=== PATIENT | male | born 1980 | race Caucasian/White ===

== ENCOUNTER 2020-02-12 13:01 | Emergency (ER) | payer OTHER ==
[2020-02-12 13:34] VITALS: BP 132/78
--- NOTE | 2020-02-12 14:15 | ER Document Report ---
ED Medical Screen (RME) - General Chief Complaint: Back Injury Stated Complaint: BACK/LEG PAIN Time Seen by Provider: 02/12/20 14:03 Mode of Arrival: Wheelchair Information source: Patient Notes: 40-year-old male presented to ED very because he has severe excruciating back pain that caused him to fall down and hit the floor. He states he was picking a tire off off of the tire machine when he felt a pop that was caused such severe pain that he hit the ground. He states he has had back pain and sciatica in the past but is never had pain like this. He states he does have a history of [place] tooth removal inguinal hernia and a traumatic brain injury. He states he is also had a colonoscopy and endoscopy. He states he does dip a pouch a day drinks maybe twice a year and does not do any illicit drugs. Patient is alert oriented respirations regular nonlabored speaking in full sentences. He states he is not able to walk due to the pain in the back after this injury. I have greeted and performed a rapid initial assessment of this patient. A comprehensive ED assessment and evaluation of the patient, analysis of test results and completion of medical decision making process will be conducted by an additional ED providers. TRAVEL OUTSIDE OF THE [place] IN LAST 30 DAYS: No - Related Data Allergies/Adverse Reactions: No Known Allergies Allergy (Unverified 08/01/15 19:50) Physical Exam - Vital signs Vitals: Temp Pulse Resp BP Pulse Ox 98.6 F 63 20 132/78 H 99 02/12/20 13:33 02/12/20 13:33 02/12/20 13:33 02/12/20 13:33 02/12/20 13:33 Course - Vital Signs Vital signs: Temp Pulse Resp BP Pulse Ox 98.6 F 63 20 132/78 H 99 02/12/20 13:33 02/12/20 13:33 02/12/20 13:33 02/12/20 13:33 02/12/20 13:33
[2020-02-12] MEDS ORDERED: HYDROCODONE/ACETAMINOPHEN 5-325 MG TABLET PO ONE (14:17)
[2020-02-12 14:51] LABS: ABSOLUTE BASOPHILS # (AUTO) 0.1 10^3/uL (0.0-0.2); ABSOLUTE EOSINOPHILS # (AUTO) 0.4 10^3/uL (0.0-0.6); ABSOLUTE LYMPHOCYTES (AUTO) 2.9 10^3/uL (0.5-4.7); ABSOLUTE MONOCYTES (AUTO) 0.5 10^3/uL (0.1-1.4); ABSOLUTE NEUT (AUTO) 5.7 10^3/uL (1.7-8.2); BASOPHILS % (AUTO) 0.9 % (0-2); EOSINOPHILS % (AUTO) 3.9 % (0-6); HEMATOCRIT 44.1 % (37.9-51.0); HEMOGLOBIN 15.4 g/dL (13.5-17.0); LYMPHOCYTES % (AUTO) 30.2 % (13-45); MEAN CORPUSCULAR HEMOGLOBIN 29.6 pg (27.0-33.4); MEAN CORPUSCULAR HGB CONC 34.9 g/dL (32.0-36.0); MEAN CORPUSCULAR VOLUME 85 fl (80-97); MONOCYTES % (AUTO) 5.6 % (3-13); PLATELET COUNT 276 10^3/uL (150-450); RED CELL DISTRIBUTION WIDTH 12.5 % (11.5-14.0); SEGMENTED NEUTROPHILS % (AUTO) 59.4 % (42-78); TOTAL CELLS COUNTED % (AUTO) 100 %; WHITE BLOOD COUNT 9.6 10^3/uL (4.0-10.5)
[2020-02-12 14:52] LABS: APPEARANCE,URINE CLEAR; BILIRUBIN,URINE NEGATIVE (NEGATIVE); COLOR,URINE YELLOW; GLUCOSE, URINE NEGATIVE (NEGATIVE); KETONES,URINE NEGATIVE (NEGATIVE); LEUKOCYTE ESTERASE,URINE NEGATIVE (NEGATIVE); NITRITE,URINE NEGATIVE (NEGATIVE); PROTEIN,URINE NEGATIVE (NEGATIVE); URINE SPECIFIC GRAVITY 1.019; UROBILINOGEN,URINE NEGATIVE mg/dL (<2.0)
[2020-02-12 15:09] LABS: ALBUMIN 4.9 g/dL (3.5-5.0); ALKALINE PHOSPHATASE 69 U/L (38-126); ANION GAP 11 (5-19); ASPARTATE AMINO TRANSFERASE 34 U/L (17-59); BILIRUBIN,DIRECT 0.2 mg/dL (0.0-0.4); BILIRUBIN,TOTAL 0.5 mg/dL (0.2-1.3); BLOOD UREA NITROGEN 12 mg/dL (7-20); CARBON DIOXIDE 26 mmol/L (22-30); CHLORIDE 104 mmol/L (98-107); GLUCOSE 88 mg/dL (75-110); POTASSIUM 4.8 mmol/L (3.6-5.0); TOTAL PROTEIN 8.4 g/dL (6.3-8.2)
--- NOTE | 2020-02-12 16:33 | RADIOLOGY REPORT (SQ) ---
EXAM DESCRIPTION: CT LUMBAR SPINE WITHOUT IMAGES COMPLETED DATE/TIME: 02/12/2020 3:51 pm REASON FOR STUDY: Severe lower back pain with heavy lifting COMPARISON: None. TECHNIQUE: Axial images acquired through the lumbar spine without intravenous contrast. Images revi ewed with lung, soft tissue and bone windows. Reconstructed coronal and sagittal MPR images reviewed . All images stored on PACS. All CT scanners at this facility use dose modulation, iterative reconstruction, and/or weight based d osing when appropriate to reduce radiation dose to as low as reasonably achievable (ALARA). [facility]: Dose Right [facility]: CareDose [facility]: Dose Right [facility]: Teradose 4D [facility]: [employer] RADIATION DOSE: mGy. LIMITATIONS: None. FINDINGS: SEGMENTATION: Normal. No transitional anatomy. ALIGNMENT: Normal. VERTEBRAL BODIES: No fractures. No dislocation. No acute findings. DISCS: Mild disc bulge at L3-4 without significant spinal canal stenosis or neural foraminal narrowin g. Circumferential bulge at L4-5 without resultant high-grade spinal canal stenosis. There is mild bilateral lateral recess narrowing and neural foraminal narrowing secondary to disc disease. Study l imited by lack of intrathecal contrast. PEDICLES, TRANSVERSE PROCESSES: No fractures. No dislocation. No acute findings. FACETS, POSTERIOR ELEMENTS: No fractures. No dislocation. No spinal stenosis. HARDWARE: None in the spine. VISUALIZED RIBS: No fractures. SOFT TISSUES: No significant or acute finding in adjacent soft tissues. OTHER: No other significant finding. IMPRESSION: 1. No evidence of acute bony abnormality of the lumbar spine. 2. Mild disc height loss at L4-5 with broad circumferential disc bulge resulting mild bilateral neur al foraminal narrowing. No high-grade canal stenosis. TECHNICAL DOCUMENTATION: JOB ID: [id number] Quality ID # [id number]: Final reports with documentation of one or more dose reduction techniques (e.g., Au tomated exposure control, adjustment of the mA and/or kV according to patient size, use of iterative reconstruction technique) 2010 [employer]- All Rights Reserved Reading location - IP/workstation name: [email or web address]
[2020-02-12] MEDS ORDERED: HYDROMORPHONE HCL INJ/PF 2 MG/ML AMPULE IM ONE (17:59)
[2020-02-12] MEDS ORDERED: ONDANSETRON 4 MG TAB.RAPDIS PO ONE (17:59)
[2020-02-12] MEDS ORDERED: KETOROLAC TROMETHAMINE 60 MG/2 ML SDV IM ONE (18:00)
[2020-02-12] MEDS ORDERED: DEXAMETHASONE SOD PHOS INJ 10 MG/1 ML VIAL IM ONE (18:00)
[2020-02-12] MEDS ORDERED: CYCLOBENZAPRINE HCL 10 MG TABLET PO ONE (18:00)
--- NOTE | 2020-02-12 18:04 | ER Document Report ---
ED General - General Chief Complaint: Back Injury Stated Complaint: BACK/LEG PAIN Time Seen by Provider: 02/12/20 14:03 Mode of Arrival: Wheelchair Information source: Patient Notes: Patient is a 40-year-old male coming in today with acute onset of back pain at work today. He was working in his shop. He was lifting a wheel off the ground and was bending over to set it down and he felt a pop in his lower back and immediately fell to his knees. He has a previous history of sciatica during his years in the . Has not really had any problems with his back since then. He denies bladder and bowel dysfunction. Denies saddle anesthesia. Denies focal weakness. Denies urinary symptoms. TRAVEL OUTSIDE OF THE [place] IN LAST 30 DAYS: No - Related Data Allergies/Adverse Reactions: No Known Allergies Allergy (Unverified 08/01/15 19:50) Past Medical History - General Information source: Patient - Social History Smoking Status: Never Smoker Chew tobacco use (# tins/day): Yes Family History: Reviewed & Not Pertinent Review of Systems - Review of Systems Notes: Constitutional: No fevers. No chills. EENT: No eye redness. No eye pain. No ear pain. No sore throat. Cardiovascular: No chest pain. No palpitations. Respiratory: No cough. No shortness of breath. No respiratory distress. Gastrointestinal: No abdominal pain. No nausea, vomiting, or diarrhea. Genitourinary: Atraumatic. No lesions. No pain. No discharge. Musculoskeletal: Positive low back pain Skin: No rash or lesions. Lymphatic: No swollen lymph nodes. Neurologic: No headache. No syncope. Negative for urinary and fecal incontinence, negative for saddle anesthesia Psychiatric: No suicidal or homicidal ideation. Physical Exam - Vital signs Vitals: Temp Pulse Resp BP Pulse Ox 98.6 F 63 20 132/78 H 99 02/12/20 13:33 02/12/20 13:33 02/12/20 13:33 02/12/20 13:33 02/12/20 13:33 - Notes Notes: General: Well-developed, well-nourished. In no acute distress. Non-toxic a ppearing. Cardiac: Well-perfused. Regular rate and rhythm. No murmurs, rubs, or gallops. Pulmonary: No respiratory distress. No cyanosis. Bilateral lung fiels are clear to auscultation. Abdominal: Non-distended. Non-rigid. Bowels sounds are present in all four quadrants. No guarding or rebound. HEENT: Head is atraumatic. Conjunctivae not reddened. No tearing. PERRL. EOMI. Orbits atraumatic. No periorbital swelling or erythema. Oropharynx is without erythema, swelling, or exudates. Neck: Supple. No adenopathy. No meningismus. Dermatologic: Warm with good turgor. No rash. Atraumatic. Chest: Atraumatic. No chest wall tenderness to palpation. Musculoskeletal: No reproducible tenderness to palpation of the middle or the bilateral paralumbar spine. No step-off. Left straight leg raise positive for pain only Genitourinary: Examination deferred Neurologic: No gross neurologic deficits. Psychiatric: Normal mood. Course - Re-evaluation Re-evalutation: 02/12/20 18:04 CT scan of the lumbar spine reveals L3-L4 and L4-L5 disc herniations with no central canal impingement or compression. Patient does not historically report any symptoms consistent with cauda equina. We will give him a shot IM of Toradol, dexamethasone, Dilaudid, and oral Zofran and cyclobenzaprine. Will reassess shortly 02/12/20 19:28 Patient essentially pain-free on this most recent examination. We will send him home on a Medrol Dosepak, cyclobenzaprine, and a [place] take-home pack. - Vital Signs Vital signs: Temp Pulse Resp BP Pulse Ox 98.6 F 63 20 132/78 H 99 02/12/20 13:33 02/12/20 13:33 02/12/20 13:33 02/12/20 13:33 02/12/20 13:33 - Laboratory Result Diagrams: 02/12/20 14:27 02/12/20 14:27 Laboratory results interpreted by me: 02/12/20 02/12/20 14:27 14:27 Total Protein 8.4 H Urine Ascorbic Acid 20 H - Diagnostic Test Radiology reviewed: Reports reviewed Discharge - Discharge Clinical Impression: Elevated blood pressure reading Herniated disc Qualifiers: Spinal region: lumbosacral Qualified Code(s): M51.27 - Other intervertebral disc displacement, lumbosacral region Condition: Good Disposition: HOME, SELF-CARE Instructions: Ice Packs ([facility]), Low Back Pain ([facility]), Muscle Strain ([facility]), Oral Narcotic Medication ([facility]), Pain Medication Injection ([facility]) Additional Instructions: Follow-up with Workmen's [employer]. doctor tomorrow or the next day. Hot showers for symptomatic relief. Do not lay on a heating pad. May apply ice packs to the area 20 minutes/hr. These use the medications that are prescribed as directed. The Dosepak must be taken for the full duration and taken specifically as directed on the package. The muscle relaxants can be taken as needed. The narcotic pain medication can also be taken only as needed. Prescriptions: Cyclobenzaprine HCl 5 mg PO TIDP PRN #15 tablet PRN Reason: Methylprednisolone [Medrol Dosepack (4 mg/Tab) 21 Tab/Dosepak] 21 tab PO ASDIR #1 dspk Forms: Elevated Blood Pressure
[2020-02-12] MEDS ORDERED: HYDROCODONE/ACETAMINOPHEN 5-325 MG (6 TAB/ER DISP) PO PRN (19:32)
== END 2020-02-12 19:51 | disposition home or self-care (01) ==
LOC: ER 13:01
DX: S33.141A Dislocation of L4/L5 lumbar vertebra, initial encounter (principal); S33.131A Dislocation of L3/L4 lumbar vertebra, initial encounter; M54.5 Low back pain; X50.0XXA Overexertion from strenuous movement or load, initial encounter; Y99.0 Civilian activity done for income or pay; R03.0 Elevated blood-pressure reading, without diagnosis of hypertension; Z72.0 Tobacco use
CPT/HCPCS: 99285; 96372; 36415; 85025; 80053; 81001; 72131; J1885; S0119; J1170; J1100